=== PATIENT | male | born 1950 | race Two or more races ===

== ENCOUNTER 2019-03-05 18:59 | Emergency (ER) | payer OTHER, MEDICARE ==
[~2019-03-05] VITALS: Ht 172.7 cm; Wt 80.0 kg
[2019-03-05] MEDS ORDERED: SUMA25TA9 PO (19:06)
[2019-03-05] MEDS ORDERED: CLOPIDOGREL 75MG TABLET PO ONE (21:00)
[2019-03-05 21:01] LABS: BASOPHILS % 1.1 % (0.0-2.0); HEMATOCRIT. 46.6 % (42.0-52.0); HEMOGLOBIN. 15.6 g/dL (14.0-18.0); LYMPHOCYTES % 25.8 % (20.0-50.0); MEAN CORPUSCULAR HEMOGLOBIN 30.6 pg (28.0-32.0); MEAN CORPUSCULAR VOLUME 91.3 fL (80.0-94.0); MEAN PLATELET VOLUME 10.8 fl (7.4-10.4); MONOCYTES % 9.2 % (2.0-8.0); NEUTROPHILS % 61.9 % (40.0-76.0); PLATELET 142 x1000/uL (130-400); RED CELL DISTRIBUTION WIDTH 13.2 % (11.6-14.6)
[2019-03-05 21:02] LABS: CHLORIDE 105 mEq/L (98-107)
[2019-03-05 21:06] LABS: ETHANOL BLOOD < 10 mg/dL
[2019-03-05 21:07] LABS: CLARITY URINE CLEAR (CLEAR); COLOR URINE YELLOW (YELLOW); KETONES URINE NEGATIVE (NEGATIVE); LEUKOCYTE ESTERASE URINE NEGATIVE (NEGATIVE); NITRITE URINE NEGATIVE (NEGATIVE); OCCULT BLOOD URINE NEGATIVE (NEGATIVE); PH URINE 7.5 (4.5-8.0); PROTEIN URINE NEGATIVE (NEGATIVE); SPECIFIC GRAVITY URINE 1.005 (1.005-1.030); UROBILINOGEN URINE 0.2 E.U./dL (0.2-1.0)
[2019-03-05 21:09] LABS: LDL CHOLESTEROL 87 mg/dL (5-100)
[2019-03-05 21:10] LABS: PROTHROMBIN TIME 10.8 sec (9.6-11.0)
[2019-03-05 21:22] LABS: *AMPHETAMINES SCREEN URINE NEGATIVE (NEGATIVE); *BARBITURATES SCREEN URINE NEGATIVE (NEGATIVE); *BENZODIAZEPINES SCREEN URINE NEGATIVE (NEGATIVE); *COCAINE SCREEN URINE NEGATIVE (NEGATIVE); CANNABINOID URINE SCREEN NEGATIVE (NEGATIVE); METHADONE URINE SCREEN NEGATIVE (NEGATIVE); OPIATES URINE SCREEN NEGATIVE (NEGATIVE); PHENCYCLIDINE URINE SCREEN NEGATIVE (NEGATIVE)
[2019-03-05 23:24] VITALS: BP 145/89
== END 2019-03-06 01:29 | disposition short-term general hospital (02) ==
LOC: ER 18:59 → CANBEDREQ 03-06 04:54
DX: G45.9 Transient cerebral ischemic attack, unspecified (principal); R03.0 Elevated blood-pressure reading, without diagnosis of hypertension
CPT/HCPCS: 36415; 71045; 80305; 80320; 81003; 82962; 83721; 84484; 93005; 99285; G0480